=== PATIENT | male | born 1970 | race African-American/Black ===

== ENCOUNTER 2016-05-29 14:23 | Emergency (ER) | payer OTHER ==
[~2016-05-29] VITALS: Ht 185.4 cm; Wt 86.2 kg
[~2016-05-29 14:23] MED LIST: ALBU8.5H2 IH; INHA1INH8 MC; NAPR550T PO; PRD20T PO
--- OUTSIDE RECORDS SUMMARY | 2016-05-29 14:28 | XMS REPORT ---
Author Author MOUSTAPHA VALENTINE e[employer] Address Unknown Phone Unavailable Care Team Providers Care Mounter Clarinets Name Role Phone MOUSTAPHA VALENTINE CP Unavailable Allergies, Adverse Reactions, Alerts Substance Reaction Event Type N.K.D.A. Info Not Available Non Drug Allergy Problems Problem Type Condition Code Onset Dates Condition Status Problem Esophageal reflux 530.81 Active Problem Blood in stool 578.1 Active Problem Encounter for dental examination Z01.20 Active Assessment Encounter for dental examination Z01.20 Active Medications No Known Medications Procedures Procedure Coding System Code Date INTRAORL-PERIAPICAL 1 FILM 38640 CPT-4 D0220 Nov 17, 2015 INTRAORL-PERIAPICAL EA ADD FILM CPT-4 D0230 Nov 17, 2015 COMP ORAL EVALUATION - NEW/EST PT CPT-4 D0150 Nov 17, 2015 BITEWINGS - FOUR FILMS CPT-4 D0274 Nov 17, 2015 INTRAORL-PERIAPICAL EA ADD FILM CPT-4 D0230 Nov 17, 2015 PANORAMIC FILM SEE ALSO CODE 16938 CPT-4 D0330 Nov 17, 2015 Vital Signs Date/Time: Nov 17, 2015 Blood Pressure Diastolic 83 mmHg Blood Pressure Systolic 122 mmHg Results No Known Results Summary Purpose eClinicalWorks Submission
[2016-05-29] MEDS ORDERED: KETOROLAC 60 MG/2 ML VIAL IM ONE (15:00)
[2016-05-29] MEDS ORDERED: ORPHENADRINE 60 MG/2 ML (NORFLEX) AMP IM ONE (15:00)
--- NOTE | 2016-05-29 15:03 | ED Headache ---
General Chief Complaint: Head/Cervical Problems Stated Complaint: POSS MENINGITIS Nursing Triage Note: AMBULATED TO ROOM 06 WITH COMPLAINTS OF NECK PAIN X2 DAYS AFTER DOING SOME HEAVY LIFTING. STATES HIS COUSIN TOLD HIM HE COULD HAVE MENINGITIS. PT STATES HE HAS A HX OF BEING PARANOID AND WANTS TO MAKE SURE HE DOES NOT HAVE IT. Nursing Sepsis Screen: No Definite Risk Source: patient Exam Limitations: no limitations History of Present Illness Time seen by provider: 15:01 Initial Comments To ER with pain in the back of his head radiating into the left shoulder. He states this followed doing some heavy lifting. He told his cousin about this pain who suggested that he may have meningitis. He denies fevers or chills or exposure to ill contacts that he is aware of. He then got on the Internet and read about meningitis and has pain when he pushes on his neck and believes this may have been a symptom. Timing/Duration: other (48 hours) Severity/Quality: moderate Location: occipital Prior Headaches/Recent Trauma: no recent headache/trauma Associated Symptoms: No nausea/vomiting, No stiff neck Allergies and Home Medications Allergies Coded Allergies: No Known Drug Allergies (Unverified , 01/06/10) Home Medications No Active Prescriptions or Reported Meds Constitutional: see HPINo chills, No fever, No malaise, No weakness Eyes: No Symptoms Reported Ears, Nose, Mouth, Throat: no symptoms reported Respiratory: no symptoms reported Cardiovascular: no symptoms reported Genitourinary: no symptoms reported Musculoskeletal: no symptoms reported Skin: no symptoms reported Psychiatric/Neurological: No Symptoms Reported Past Sowqihx-Xamkny-Sysqsa Hx Patient Social History Alcohol Use: Occasionally Uses Recreational Drug Use: Yes Smoking Status: Never a Smoker Recent Foreign Travel: No Contact w/Someone Who Travel: No Recent Infectious Disease Expo: No Recent Hopitalizations: No Seasonal Allergies Seasonal Allergies: No Surgeries HX Surgeries: No Respiratory Hx Respiratory Disorders: Yes Respiratory Disorders: Chronic Bronchitis Cardiovascular Hx Cardiac Disorders: No Neurological Hx Neurological Disorders: No Genitourinary Hx Genitourinary Disorders: No Gastrointestinal Hx Gastrointestinal Disorders: Yes (H PYLORI) Musculoskeletal Hx Musculoskeletal Disorders: No Endocrine Hx Endocrine Disorders: No HEENT HX ENT Disorders: No Cancer Hx Cancer: No Psychosocial Hx Psychiatric Problems: Yes (PARANOIA) Integumentary HX Skin/Integumentary Disorder: No Blood Transfusions Hx Blood Disorders: No Adverse Reaction to a Blood Tr: No Physical Exam Vital Signs Vital Sign - Last 12Hours 05/29/16 14:46 Temp 97.6 Pulse 62 Resp 16 B/P 122/82 Pulse Ox 97 O2 Delivery Room Air Capillary Refill : Less Than 3 Seconds General Appearance: WD/WN no apparent distress HEENT: PERRL/EOMI normal ENT inspection Neck: non-tender full range of motion tender lateral other (full active range of motion able to touch his chin to his chest without increase in pain.) Respiratory: no respiratory distress no accessory muscle use Gastrointestinal: normal bowel sounds non tender soft Extremities: normal range of motion non-tender Psychiatric: alert oriented x 3 Crainal Nerves: normal hearing normal speech PERRL Skin: normal color warm/dry Progress/Results/Core Measures Results/Orders My Orders Orders-LING GUO APRN Cbc With Automated Diff (05/29/16 14:57) Ketorolac Injection (Toradol Injection) (05/29/16 15:00) Orphenadrine Injection (Norflex Injectio (05/29/16 15:00) Vital Signs/I&O Vital Sign - Last 12Hours 05/29/16 14:46 Temp 97.6 Pulse 62 Resp 16 B/P 122/82 Pulse Ox 97 O2 Delivery Room Air Blood Pressure Mean: 95 Departure Impression Impression: Primary Impression: Tension type headache Qualified Code: G44.209 - Tension-type headache, unspecified, not intractable Disposition: 01 HOME, SELF-CARE Condition: Stable Departure-Patient Inst. Decision time for Depature: 15:03 Referrals: NO,LOCAL PHYSICIAN (PCP/Family) Primary Care Physician Patient Instructions: Headache, Adult (DC) Add. Discharge Instructions: 1. Return to ER for any concerns such as fevers or worsening pain 2. Follow-up with your doctor later this week All discharge instructions reviewed with patient and/or family. Voiced understanding. Scripts No Active Prescriptions or Reported Meds LING GUO APRN May 29, 2016 15:03
[2016-05-29 15:13] LABS: BASOPHILS # (AUTO) 0.1 10^3/uL (0.0-0.1); BASOPHILS % (AUTO) 1 % (0-10); EOSINOPHILS # (AUTO) 0.1 10^3/uL (0.0-0.3); EOSINOPHILS % (AUTO) 3 % (0-10); LYMPHOCYTES # (AUTO) 2.1 X 10^3 (1.0-4.0); LYMPHOCYTES % (AUTO) 46 % (12-44); MEAN CORPUSCULAR HEMOGLOBIN 31 PG (25-34); MEAN CORPUSCULAR HGB CONC 34 G/DL (32-36); MEAN CORPUSCULAR VOLUME 93 FL (80-99); MEAN PLATELET VOLUME 10.2 FL (7.4-10.4); MONOCYTES # (AUTO) 0.3 X 10^3 (0.0-1.0); MONOCYTES % (AUTO) 7 % (0-12); NEUTROPHILS % (AUTO) 43 % (42-75); PLATELET COUNT 213 10^3/uL (130-400); RED BLOOD COUNT 4.53 10^6/uL (4.35-5.85); RED CELL DISTRIBUTION WIDTH 13.2 % (10.0-14.5); WHITE BLOOD COUNT 4.6 10^3/uL (4.3-11.0)
[2016-05-29 15:35] VITALS: BP 124/80
== END 2016-05-29 15:35 | disposition home or self-care (01) ==
LOC: EDUNIT# 14:23 → ER 14:25
DX: G44.209 Tension-type headache, unspecified, not intractable (principal)
CPT/HCPCS: 36415; 85025; 96372; 99282